=== PATIENT | female | born 1975 | race Caucasian/White ===

== ENCOUNTER 2017-04-25 17:55 | Inpatient (IN) | payer OTHER ==
[~2017-04-25] VITALS: Ht 165.1 cm; Wt 63.5 kg
--- NOTE | ~2017-04-25 | HC ---
[facility] [place] [address] CONSULTATION Name: JAY JAY GUTIERREZ ANN Room #: 418-P [facility] IN M.R.#: [id number] Admission: 04/25/17 Attend Phys: Geraldo Chavira Discharge: 04/29/17 Date of : 75 Report #: [id number] THIS REPORT FOR: //name// CC: ASHLEY physician/PCP Geraldo Chavira DATE OF SERVICE: 04/26/2017 TYPE OF REPORT: Wound care consultation. REASON FOR CONSULTATION: Nonhealing surgical wound of left foot with evidence of soft tissue infection in the setting of diabetes mellitus type 2 and recent surgery on April [address] Pablito Banda. HISTORY OF PRESENT ILLNESS: The patient is a very pleasant 41-year-old woman suffering from morbid obesity and diabetes mellitus type 2, who did undergo surgery of the left foot by Dr. Lakia Freitas on 10/05/2016. She required subsequent surgery by Dr. Pablito Banda. 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 The patient has peripheral neuropathy. She has nonweightbearing of her left foot. The patient noticed some pain, tenderness, swelling and drainage from the foot and did see Dr. Banda in his office on the evening of April 24. Dr. Banda felt there was a soft tissue infection, possible cutaneous abscess, admitted her to the hospital with IV antibiotics and consulted Infectious Disease. Wound cultures have been taken. MRI of the foot was ordered. Results of the MRI are pending at the time of rounding. The patient does complain of considerable pain in the foot and has noted that the area was swollen with drainage from the wound. She has just gone for an MRI. ALLERGIES: CONTRAST DYE and X-RAY DYES. HOME MEDICATIONS: Include glyburide and metformin, lisinopril, Invokana, Lexapro, Victoza, gabapentin, also citalopram. In the hospital now, she has been on vancomycin and piperacillin. PAST MEDICAL HISTORY: Morbid obesity, diabetes mellitus type 1 and hypertension. PAST SURGICAL HISTORY: Left foot surgery, Dr. Lakia Freitas on 10/05/[address] Banda on April 13 with open reduction and internal fixation of fifth metatarsal. SOCIAL HISTORY: The patient does not smoke or drink. PHYSICAL EXAMINATION: GENERAL: Today shows a very pleasant, obese, middle-aged woman. [address] [address] CONSULTATION Name: JAY JAY GUTIERREZ ANN Room #: 418-P [facility] IN .R.#: [id number] Admission: 04/25/17 Attend Phys: Geraldo Chavira Discharge: 04/29/17 Date of : 75 Report #: [id number] VITAL SIGNS: Stable. She is afebrile. HEENT: Mucous membranes are moist. ABDOMEN: Obese. LUNGS: Respirations unlabored. EXTREMITIES: Shows intact dorsalis pedis pulses bilaterally. There is recent surgery of the left lateral dorsal foot with some intact suture material. There is a 3-cm, slightly raised reddened area, which is very tender with a central 6-mm area of some purulent drainage. This area was probed with a cotton-tipped applicator and there appears to be a subcutaneous, partially drained abscess cavity measuring approximately 2 cm in diameter. Wound cultures are taken. IMPRESSION: 1. Diabetes mellitus type 1 with foot ulcer. 2. Morbid obesity. 3. Nonhealing surgical wound of left foot, status surgery April 13. 4. Soft tissue infection of the left foot with cutaneous abscess, rule out osteomyelitis. MRI without contrast done of the left foot, does show some soft tissue infection, recent postsurgical changes and equivocal findings for osteomyelitis early with some signal intensity, more pronounced than expected. PLAN: 1. Local wound care with dry dressing. Continue IV antibiotics, vancomycin and piperacillin per Dr. Li. 2. Dr. Banda plans to return the patient to surgery for incision and drainage of the cutaneous abscess and removal of any infected tissue to be done on April 27. Wound care team will follow. <ELECTRONICALLY SIGNED> By: Adán Tom MD 05/01/17 2114 1029 1100 Adán Tom MD /nt
--- NOTE | ~2017-04-25 | HC ---
[facility] [place] [address] CONSULTATION Name: GUTIERREZRIGO Room #: 418-P ADM IN M.R.#: [id number] Admission: 04/25/17 Attend Phys: Geraldo Chavira Discharge: Date of : 75 Report #: [id number] THIS REPORT FOR: //name// CC: ASHLEY physician/PCP Geraldo Chavira REASON FOR CONSULTATION: I was asked to evaluate concerning surgical site infection of her left foot. HISTORY OF PRESENT ILLNESS: The patient is a 41-year-old diabetic who sustained a closed fracture of the left proximal metatarsal approximately 9 months ago. Due to nonunion, she underwent surgical intervention on 04/13/2017 with hardware stabilization of the fracture site. She remained nonweightbearing postoperatively. She did have a [id number] cast placed as well. Following removal of her cast, it was identified with increased redness and drainage along the incision line. There were 2 ulcerations identified along with some mid incisional dehiscence. The wounds were cultured. She was admitted for further intervention. No fever, chills or sweats. Moderate amount of pain. MRI scan shows evidence of recent ORIF with increased reactive changes to the bone. No definite abscess. Also, noted that she had a previous ORIF in 09/2016. She underwent her redo surgery due to nonunion. ALLERGIES: CONTRAST DYE. MEDICATIONS: Prior to admission including glyburide, metformin, lisinopril, Invokana, Lexapro, Victoza, Neurontin, and Lovenox. Subsequently, she has been placed on vancomycin and Zosyn. Also, she is on insulin. PAST MEDICAL HISTORY: Diabetes, previous ORIF of this metatarsal with second surgery as noted above. FAMILY HISTORY: Diabetes. SOCIAL HISTORY: Nonsmoker, no significant alcohol intake, works as an microelectronics technician. REVIEW OF SYSTEMS: No cardiopulmonary, GI or complaints. PHYSICAL EXAMINATION: VITAL SIGNS: Afebrile and hemodynamically stable. GENERAL: She is alert and cooperative and pleasant with no acute distress. Moderately obese. HEENT: Unremarkable. LUNGS: Clear. HEART: Regular. ABDOMEN: Soft. EXTREMITIES: Left lower extremity incision had dehiscence in the mid portion [facility] [address] [place] [address] CONSULTATION Name: JAY JAY GUTIERREZ ANN Room #: 418-P ADM IN M.R.#: [id number] Admission: 04/25/17 Attend Phys: Geraldo Chavira Discharge: Date of : 75 Report #: [id number] along with two ulcerations to the soft tissues. Surrounding erythema. Significant tenderness. Mild induration and fluctuance over the superior aspect of her wound and incision. Pulses were palpable. Sensation intact in the toes. Peripheral IV, left arm. LABORATORY STUDIES: MRI scan of the foot shows postoperative change at the base of the fifth metatarsal with screw fixation of an avulsion fracture at the base of the fifth metatarsal. Bone marrow and soft tissue edema concerning for infection and early osteomyelitis. Blood cultures remain negative. Sodium 137, potassium 4.3, creatinine 1, hemoglobin 11.4, WBC 9.5, platelet count 304,000. Differential unremarkable. CRP 49. Hemoglobin A1c 6.8. Sedimentation rate 68. TSH 2.26. Liver function test normal. Wound culture pending. 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 Given the recent nature of her surgical intervention and the extent of her soft tissue infection, I would be concerned about organ space infection. The patient will have debridement and infection of the hardware tomorrow. We will await culture results and adjust antibiotics accordingly. The patient will remain on her current antibiotic program pending these studies. Likely will need prolonged IV therapy. This was discussed with the patient at the bedside. <ELECTRONICALLY SIGNED> By: Saeid Li MD 04/27/17 1257 1700 1915 Saeid Li MD /nt
[2017-04-25 19:01] LABS: HEMATOCRIT 36.5 % (37.0-47.0); HEMOGLOBIN 12.1 gm/dL (12.0-15.0); MCH 29.1 pg (26.0-34.0); MCHC 33.2 g/dL (28.0-37.0); MCV 87.6 fL (80.0-100.0); RBC 4.16 mil/uL (4.20-5.00); RDW 16.8 % (10.5-14.5); WBC 12.1 thou/uL (4.0-11.0)
[2017-04-25 19:12] LABS: ALBUMIN 3.6 g/dL (3.4-5.0); CALCIUM 9.5 mg/dL (8.5-10.1); CREATININE 0.8 mg/dL (0.6-1.0); MAGNESIUM 2.2 mg/dL (1.8-2.4); TOTAL BILIRUBIN 0.4 mg/dL (<0.1-1.0); TOTAL PROTEIN 8.3 g/dL (6.4-8.2)
[2017-04-26] VITALS (7 sets, daily range): BP systolic 110–150; BP diastolic 51–69
[2017-04-26 04:41] LABS: GLYCOHEMOGLOBIN (HGB A1C) 6.8 % (4.8-5.6)
[2017-04-26 04:57] LABS: URINE BILIRUBIN NEGATIVE (Negative); URINE BLOOD 1+ (Negative); URINE COLOR YELLOW; URINE GLUCOSE-RANDOM* 3+ (Negative); URINE KETONES NEGATIVE (Negative); URINE LEUKOCYTES 2+ (Negative); URINE NITRITE NEGATIVE (Negative); URINE PROTEIN (DIPSTICK) NEGATIVE (Negative); URINE UROBILINOGEN 0.2 E.U./dl (0.2-1.0)
[2017-04-26 04:59] LABS: URINE CLARITY CLOUDY
[2017-04-26 05:12] LABS: CRP HIGHLY SENSITIVE 49.69 mg/L (0.00-3.00)
[2017-04-26 05:23] LABS: BACTERIA >30 Many /HPF (None Seen); CASTS None Seen /LPF (None Seen); CRYSTALS None Seen /LPF (None Seen); SQUAMOUS >10 Many /LPF (0-3); URINE RBC 0-2 Rare /HPF (0-2)
[2017-04-26 06:00] LABS: ABSOLUTE NEUTROPHILS 5.5 thou/uL (1.4-8.2); BASOPHILS 0.7 % (0.0-2.0); EOSINOPHILS 2.1 % (0.0-3.0); HEMATOCRIT 34.4 % (37.0-47.0); HEMOGLOBIN 11.4 gm/dL (12.0-15.0); LYMPHOCYTES 32.8 % (24.0-44.0); MCH 29.2 pg (26.0-34.0); MCHC 33.2 g/dL (28.0-37.0); MCV 87.8 fL (80.0-100.0); MONOCYTES 6.3 % (1.0-8.0); PLATELET COUNT 304 thou/uL (150-400); POLYS 58.1 % (36.0-66.0); RBC 3.92 mil/uL (4.20-5.00); RDW 17.1 % (10.5-14.5); WBC 9.5 thou/uL (4.0-11.0)
[2017-04-26 06:18] LABS: CALCIUM 9.2 mg/dL (8.5-10.1); POTASSIUM 4.3 mmol/L (3.5-5.1)
[2017-04-26] MEDS ORDERED: GLYBURID-METFO1 EAC3 PO (08:05)
[2017-04-26] MEDS ORDERED: LISINOPRIL20 MG PO (08:06)
[2017-04-26] MEDS ORDERED: LEXAPRO20 MG PO (08:07)
[2017-04-26] MEDS ORDERED: INVOKANA300 MG PO (08:07)
[2017-04-26] MEDS ORDERED: VICTOZA0.6 MG/0.1 SUBQ (08:08)
[2017-04-26] MEDS ORDERED: NEURONTIN 300300 M1 PO (08:09)
[2017-04-26] MEDS ORDERED: ENOXAPARIN40 MG/0.1 SUBQ (08:09)
[2017-04-27] VITALS (10 sets, daily range): BP systolic 111–136; BP diastolic 59–95
[2017-04-28 03:50] VITALS: BP 97/56
[2017-04-28 07:05] VITALS: BP 88/44
[2017-04-28 15:57] VITALS: BP 104/53
[2017-04-28 20:00] VITALS: BP 112/62
[2017-04-29 05:00] VITALS: BP 120/66
[2017-04-29] MEDS ORDERED: CEFAZ1 ADV IV (09:48)
[2017-04-29] MEDS ORDERED: HYDROCODON-ACE1 EAC7 PO (09:49)
[2017-04-29] MEDS ORDERED: NOVOLOG100 UNIT/1 SUBQ (09:50)
[2017-04-29 10:23] VITALS: BP 120/66
[2017-04-29 12:44] VITALS: BP 120/66
== END 2017-04-29 15:12 | disposition home health service (06) | DRG 856 ==
LOC: 4E 17:55
PROVIDERS: Hospitalist; Nurse Practitioner
PROC: 0J9R0ZX Drainage of Left Foot Subcutaneous Tissue and Fascia, Open Approach, Diagnostic (ICD-10-PCS; principal; 2017-04-27)
PROC: 0JDR0ZZ Extraction of Left Foot Subcutaneous Tissue and Fascia, Open Approach (ICD-10-PCS; principal; 2017-04-27)
PROC: 05HY33Z Insertion of Infusion Device into Upper Vein, Percutaneous Approach (ICD-10-PCS; 2017-04-28)
DX: T81.4XXA Infection following a procedure, initial encounter (principal); A41.9 Sepsis, unspecified organism; M86.172 Other acute osteomyelitis, left ankle and foot; L03.116 Cellulitis of left lower limb; L02.612 Cutaneous abscess of left foot; Y83.8 Other surgical procedures as the cause of abnormal reaction of the patient, or of later complication, without mention of misadventure at the time of the procedure; Y92.89 Other specified places as the place of occurrence of the external cause; E11.69 Type 2 diabetes mellitus with other specified complication; E11.621 Type 2 diabetes mellitus with foot ulcer; E11.42 Type 2 diabetes mellitus with diabetic polyneuropathy; B95.61 Methicillin susceptible Staphylococcus aureus infection as the cause of diseases classified elsewhere; F41.0 Panic disorder [episodic paroxysmal anxiety]; L97.522 Non-pressure chronic ulcer of other part of left foot with fat layer exposed; E66.01 Morbid (severe) obesity due to excess calories; Z68.23 Body mass index [BMI] 23.0-23.9, adult; Z79.84 Long term (current) use of oral hypoglycemic drugs; Z79.4 Long term (current) use of insulin; Z79.899 Other long term (current) drug therapy; Z91.041 Radiographic dye allergy status; Z83.3 Family history of diabetes mellitus
CPT/HCPCS: 10783; 27000; 50010; 50101; 50386; 51751; 53078; 57091; 62110; 62900; 64031; 70005